=== PATIENT | male | born 1980 | race African-American/Black ===

== ENCOUNTER 2020-10-09 20:15 | Outpatient (CLI) | payer OTHER ==
[2020-10-10 11:25] LABS: Hemoglobin A1c 5.5 % (4.0-6.0)
[2020-10-10 12:32] LABS: Reference Lab Name LABCORP
[2020-10-10 12:33] LABS: Ref Lab Test Ordered PARANEOPLASTICS ABS
== END 2020-10-09 20:16 | disposition home or self-care (01) ==
LOC: NAV LAB 20:15
DX: G60.3 Idiopathic progressive neuropathy (principal)
CPT/HCPCS: 36415; 82164; 82525; 82607; 82746; 83036; 83520; 84165; 84207; 84630; 85652; 86038; 86140; 86200; 86225; 86235; 86256